=== PATIENT | male | born 1950 | race Asian ===

== ENCOUNTER 2017-02-02 15:35 | Inpatient (IN) | payer OTHER ==
[~2017-02-02] VITALS: Ht 154.9 cm; Wt 52.2 kg
[2017-02-02] MEDS ORDERED: ACETAMINOPHEN 325 MG TABLET PO PRN (17:30)
[2017-02-02] MEDS ORDERED: DOCUSATE SODIUM 283 MG/5 ML MINI-ENEMA PR PRN (17:30)
[2017-02-02 17:48] VITALS: BP 146/83
[2017-02-02 18:30] VITALS: BP 146/83
[2017-02-02] MEDS ORDERED: PNEUMOCOCCAL VACCINE POLYVALENT 0.5 ML VIAL [PPSV23] IM ONE (20:15)
[2017-02-02] MEDS ORDERED: DEXTROSE 50%-WATER 25 GM/50 ML SYRINGE IVP PRN (20:45)
[2017-02-02] MEDS: DOCUSATE SODIUM 100 MG CAPSULE PO SCH ×2 (21:00→21:29)
[2017-02-02] MEDS: SENNA 187 MG TABLET PO SCH ×2 (21:00→21:29)
[2017-02-02] MEDS: FINASTERIDE 5 MG TABLET PO SCH (21:29)
[2017-02-02] MEDS: ATORVASTATIN CALCIUM 40 MG TABLET PO SCH (21:29)
[2017-02-02] MEDS: LevETIRAcetam 500 MG TABLET PO SCH (21:29)
[2017-02-02] MEDS: HEPARIN SODIUM,PORCINE 5,000 UNITS/ML VIAL SQ SCH (21:30)
[2017-02-02] MEDS: FAMOTIDINE 20 MG TABLET PO SCH (21:31)
[2017-02-02 21:57] LABS: APPEARANCE,URINE CLEAR (CLEAR); GLUCOSE, URINE (UA) NEGATIVE (NEGATIVE); KETONES,URINE 40 mg/dL (NEGATIVE); LEUKOCYTE ESTERASE ,URINE NEGATIVE (NEGATIVE); OCCULT BLOOD,URINE NEGATIVE (NEGATIVE); PH,URINE 6.5 (5.0-8.0); PROTEIN,URINE NEGATIVE (NEGATIVE)
[2017-02-02 21:58] LABS: ADD UA MICROSCOPIC NO
[2017-02-02 22:07] LABS: GLUCOSE,POINT OF CARE 108 MG/DL (70-110)
[2017-02-02] MEDS: INSULIN ASPART 100 UNITS/ML SQ PRN (22:12)
[2017-02-02 23:32] LABS: GLUCOSE COMMENT 1 Received Meds; GLUCOSE,POINT OF CARE 189 MG/DL (70-110)
[2017-02-03 01:38] VITALS: BP 154/81
[2017-02-03 07:02] LABS: BASOPHILS % (AUTO) 0.1 % (0.0-2.0); EOSINOPHILS % (AUTO) 0.5 % (1.0-6.0); HEMATOCRIT 32.4 % (41-53); HEMOGLOBIN 10.8 g/dL (13.5-17.5); LYMPHOCYTES # (AUTO) 0.8 K/uL (1.0-4.8); LYMPHOCYTES % (AUTO) 9.8 % (22.0-44.0); MEAN CORPUSCULAR HEMOGLOBIN 29.8 pg (26.0-34.0); MEAN CORPUSCULAR HGB CONC 33.2 G/dL (31.0-37.0); MEAN CORPUSCULAR VOLUME 90 fL (80-100); MONOCYTES # (AUTO) 0.5 K/uL (0.1-1.0); MONOCYTES % (AUTO) 6.3 % (2.0-9.0); NEUTROPHILS # (AUTO) 6.8 K/uL (1.8-7.7); NEUTROPHILS % (AUTO) 83.3 % (40.0-70.0); PLATELET COUNT (AUTO) 311 K/uL (150-450); RED BLOOD CELL COUNT(AUTO) 3.61 MIL/uL (4.50-5.90); RED CELL DISTRIBUTION WIDTH 15.1 % (11.5-14.5); WHITE BLOOD COUNT (AUTO) 8.2 K/uL (4.5-11.0)
[2017-02-03 07:15] LABS: ALANINE AMINOTRANSFERASE 36 U/L (12-78); ALBUMIN 1.8 g/dL (3.4-5.0); ANION GAP 9 mmol/L (8-16); ASPARTATE AMINOTRANSFERASE 32 U/L (15-37); BILIRUBIN,TOTAL 0.3 mg/dL (0.1-1.0); CALCIUM, TOTAL 7.5 mg/dL (8.8-10.5); CARBON DIOXIDE 26 mmol/L (22-29); CHLORIDE 102 mmol/L (98-107); CREATININE 0.75 mg/dL (0.60-1.30); GLOMERULAR FILTR. RATE CALC > 60 mL/min (>60); POTASSIUM 3.6 mmol/L (3.5-5.1); SODIUM SERUM 137 mmol/L (136-145); TOTAL PROTEIN, SERUM 5.3 g/dL (6.4-8.2); UREA NITROGEN, BLOOD 7 mg/dL (7-18)
[2017-02-03 07:17] LABS: GLUCOSE,POINT OF CARE 114 MG/DL (70-110)
[2017-02-03 07:21] VITALS: BP 149/83
[2017-02-03] MEDS: MetFORMIN HCL 500 MG TABLET PO SCH (08:10)
[2017-02-03] MEDS: CYANOCOBALAMIN 500 MCG TABLET PO SCH (08:10)
[2017-02-03] MEDS: LevETIRAcetam 500 MG TABLET PO SCH ×2 (08:10→20:59)
[2017-02-03] MEDS: HEPARIN SODIUM,PORCINE 5,000 UNITS/ML VIAL SQ SCH ×2 (08:11→20:59)
[2017-02-03] MEDS: DOCUSATE SODIUM 100 MG CAPSULE PO SCH ×2 (08:11→20:59)
[2017-02-03] MEDS ORDERED: PIOGLITAZONE HCL 30 MG TABLET PO SCH (09:00)
[2017-02-03] MEDS ORDERED: LISINOPRIL 10 MG TABLET PO SCH (09:00)
[2017-02-03 13:02] LABS: GLUCOSE,POINT OF CARE 179 MG/DL (70-110)
[2017-02-03 16:00] VITALS: BP 127/70
[2017-02-03 17:53] LABS: GLUCOSE COMMENT 1 Received Meds; GLUCOSE,POINT OF CARE 223 MG/DL (70-110)
[2017-02-03] MEDS ORDERED: CYAN500 PO (18:09)
[2017-02-03] MEDS ORDERED: FINA5TAB41 PO (18:09)
[2017-02-03] MEDS ORDERED: LISI-661 PO (18:09)
[2017-02-03] MEDS ORDERED: ASPI-1182 PO (18:09)
[2017-02-03] MEDS ORDERED: ATOR40TA28 PO (18:09)
[2017-02-03] MEDS ORDERED: DEXT15DR21 OU (18:09)
[2017-02-03] MEDS ORDERED: METF500T7 PO (18:09)
[2017-02-03 20:30] VITALS: BP 151/85
[2017-02-03] MEDS: FINASTERIDE 5 MG TABLET PO SCH (20:58)
[2017-02-03] MEDS: ATORVASTATIN CALCIUM 40 MG TABLET PO SCH (20:58)
[2017-02-03] MEDS: LISINOPRIL 10 MG TABLET PO SCH (20:58)
[2017-02-03] MEDS: CALCIUM CIT/VITAMIN D3 200 MG-250 UNITS TABLET PO SCH (20:59)
[2017-02-03] MEDS: FAMOTIDINE 20 MG TABLET PO SCH (20:59)
[2017-02-03] MEDS: SENNA 187 MG TABLET PO SCH (20:59)
[2017-02-03] MEDS: INSULIN ASPART 100 UNITS/ML SQ PRN (21:14)
[2017-02-03 22:12] LABS: GLUCOSE COMMENT 1 Received Meds; GLUCOSE,POINT OF CARE 171 MG/DL (70-110)
[2017-02-04 00:30] VITALS: BP 149/78
[2017-02-04 06:08] LABS: GLUCOSE,POINT OF CARE 125 MG/DL (70-110)
[2017-02-04 07:10] VITALS: BP 139/78
[2017-02-04] MEDS: CALCIUM CIT/VITAMIN D3 200 MG-250 UNITS TABLET PO SCH ×2 (07:46→20:34)
[2017-02-04] MEDS: DOCUSATE SODIUM 100 MG CAPSULE PO SCH (07:46)
[2017-02-04] MEDS: MetFORMIN HCL 500 MG TABLET PO SCH (07:47)
[2017-02-04] MEDS: HEPARIN SODIUM,PORCINE 5,000 UNITS/ML VIAL SQ SCH ×2 (07:47→20:34)
[2017-02-04] MEDS: CYANOCOBALAMIN 500 MCG TABLET PO SCH (07:48)
[2017-02-04] MEDS: LISINOPRIL 10 MG TABLET PO SCH ×2 (07:48→20:34)
[2017-02-04] MEDS: LevETIRAcetam 500 MG TABLET PO SCH ×2 (07:48→20:34)
[2017-02-04] MEDS: DOCUSATE SODIUM 250 MG CAPSULE PO SCH (09:00)
[2017-02-04 13:12] LABS: GLUCOSE COMMENT 1 Repeated; GLUCOSE,POINT OF CARE 173 MG/DL (70-110)
[2017-02-04 15:09] VITALS: BP 143/88
[2017-02-04 18:08] LABS: GLUCOSE,POINT OF CARE 171 MG/DL (70-110)
[2017-02-04 20:30] VITALS: BP 156/84
[2017-02-04] MEDS: ATORVASTATIN CALCIUM 40 MG TABLET PO SCH (20:34)
[2017-02-04] MEDS: FAMOTIDINE 20 MG TABLET PO SCH (20:34)
[2017-02-04] MEDS: FINASTERIDE 5 MG TABLET PO SCH (20:35)
[2017-02-04] MEDS ORDERED: HYPROMELLOSE 0.5% 15 ML OPHTHALMIC SOLUTION OU PRN (22:00)
[2017-02-05] VITALS: BP 128/83
[2017-02-05 07:25] VITALS: BP 144/80
[2017-02-05] MEDS: CYANOCOBALAMIN 500 MCG TABLET PO SCH (08:13)
[2017-02-05] MEDS: DOCUSATE SODIUM 250 MG CAPSULE PO SCH (08:13)
[2017-02-05] MEDS: LevETIRAcetam 500 MG TABLET PO SCH ×2 (08:13→21:08)
[2017-02-05] MEDS: MetFORMIN HCL 500 MG TABLET PO SCH (08:13)
[2017-02-05] MEDS: LISINOPRIL 10 MG TABLET PO SCH ×2 (08:13→21:08)
[2017-02-05] MEDS: CALCIUM CIT/VITAMIN D3 200 MG-250 UNITS TABLET PO SCH ×2 (08:13→21:08)
[2017-02-05] MEDS: HEPARIN SODIUM,PORCINE 5,000 UNITS/ML VIAL SQ SCH (08:14)
[2017-02-05 13:18] LABS: GLUCOSE,POINT OF CARE 136 MG/DL (70-110)
[2017-02-05 15:27] VITALS: BP 132/74
[2017-02-05] MEDS: INSULIN ASPART 100 UNITS/ML SQ PRN (18:19)
[2017-02-05 20:12] LABS: GLUCOSE COMMENT 1 Received Meds; GLUCOSE,POINT OF CARE 170 MG/DL (70-110)
[2017-02-05 21:07] VITALS: BP 135/91
[2017-02-05] MEDS: FINASTERIDE 5 MG TABLET PO SCH (21:08)
[2017-02-05] MEDS: FAMOTIDINE 20 MG TABLET PO SCH (21:08)
[2017-02-05] MEDS: MELATONIN 3 MG TABLET PO SCH (21:08)
[2017-02-05] MEDS: ATORVASTATIN CALCIUM 40 MG TABLET PO SCH (21:08)
[2017-02-05 21:57] LABS: GLUCOSE,POINT OF CARE 123 MG/DL (70-110)
[2017-02-06 00:23] VITALS: BP 133/72
[2017-02-06 04:37] LABS: GLUCOSE,POINT OF CARE 131 MG/DL (70-110)
[2017-02-06 04:37] LABS: GLUCOSE,POINT OF CARE 132 MG/DL (70-110)
[2017-02-06 06:08] LABS: GLUCOSE,POINT OF CARE 131 MG/DL (70-110)
[2017-02-06 07:32] VITALS: BP 129/74
[2017-02-06] MEDS: CYANOCOBALAMIN 500 MCG TABLET PO SCH (08:01)
[2017-02-06] MEDS: DOCUSATE SODIUM 250 MG CAPSULE PO SCH (08:01)
[2017-02-06] MEDS: SitaGLIPtin PHOSPHATE 25 MG TABLET PO SCH (08:01)
[2017-02-06] MEDS: MetFORMIN HCL 500 MG TABLET PO SCH (08:01)
[2017-02-06] MEDS: LevETIRAcetam 500 MG TABLET PO SCH (08:01)
[2017-02-06] MEDS: LISINOPRIL 10 MG TABLET PO SCH ×2 (08:01→20:46)
[2017-02-06] MEDS: CALCIUM CIT/VITAMIN D3 200 MG-250 UNITS TABLET PO SCH ×2 (08:02→20:46)
[2017-02-06 16:25] VITALS: BP 138/72
[2017-02-06] MEDS: INSULIN ASPART 100 UNITS/ML SQ PRN (17:53)
[2017-02-06 17:58] LABS: GLUCOSE,POINT OF CARE 104 MG/DL (70-110)
[2017-02-06 17:58] LABS: GLUCOSE COMMENT 1 Received Meds; GLUCOSE,POINT OF CARE 184 MG/DL (70-110)
[2017-02-06 20:40] VITALS: BP 137/83
[2017-02-06] MEDS: FINASTERIDE 5 MG TABLET PO SCH (20:45)
[2017-02-06] MEDS: FAMOTIDINE 20 MG TABLET PO SCH (20:45)
[2017-02-06] MEDS: MELATONIN 3 MG TABLET PO SCH (20:46)
[2017-02-06] MEDS: ATORVASTATIN CALCIUM 40 MG TABLET PO SCH (20:46)
[2017-02-06 23:12] LABS: GLUCOSE,POINT OF CARE 114 MG/DL (70-110)
[2017-02-06 23:15] VITALS: BP 126/74
[2017-02-07 05:57] LABS: GLUCOSE,POINT OF CARE 123 MG/DL (70-110)
[2017-02-07 07:20] VITALS: BP 134/75
[2017-02-07] MEDS: MetFORMIN HCL 500 MG TABLET PO SCH (08:38)
[2017-02-07] MEDS: CYANOCOBALAMIN 500 MCG TABLET PO SCH ×2 (09:00→09:05)
[2017-02-07] MEDS: MULTIVITAMINS WITH MINERALS, THERAPEUTIC TABLET PO SCH ×2 (09:00→09:04)
[2017-02-07] MEDS: CALCIUM CIT/VITAMIN D3 200 MG-250 UNITS TABLET PO SCH ×2 (09:04→20:21)
[2017-02-07] MEDS: SitaGLIPtin PHOSPHATE 25 MG TABLET PO SCH (09:05)
[2017-02-07] MEDS: DOCUSATE SODIUM 250 MG CAPSULE PO SCH (09:05)
[2017-02-07] MEDS: LISINOPRIL 10 MG TABLET PO SCH ×2 (09:05→20:21)
[2017-02-07 12:22] LABS: GLUCOSE,POINT OF CARE 160 MG/DL (70-110)
[2017-02-07] MEDS: INSULIN ASPART 100 UNITS/ML SQ PRN ×3 (12:28→20:46)
[2017-02-07 16:10] VITALS: BP 111/76
[2017-02-07] MEDS: FINASTERIDE 5 MG TABLET PO SCH (20:21)
[2017-02-07] MEDS: FAMOTIDINE 20 MG TABLET PO SCH (20:21)
[2017-02-07] MEDS: ATORVASTATIN CALCIUM 40 MG TABLET PO SCH (20:21)
[2017-02-07 20:22] VITALS: BP 132/75
[2017-02-07] MEDS: ZOLPIDEM TARTRATE 5 MG TABLET PO PRN (20:47)
[2017-02-07 22:47] LABS: GLUCOSE COMMENT 1 Received Meds; GLUCOSE,POINT OF CARE 191 MG/DL (70-110)
[2017-02-07 22:47] LABS: GLUCOSE,POINT OF CARE 252 MG/DL (70-110)
[2017-02-08] VITALS: BP 122/73
[2017-02-08 05:42] LABS: GLUCOSE,POINT OF CARE 145 MG/DL (70-110)
[2017-02-08 07:56] VITALS: BP 112/71
[2017-02-08] MEDS: DOCUSATE SODIUM 250 MG CAPSULE PO SCH (07:57)
[2017-02-08] MEDS: MULTIVITAMINS WITH MINERALS, THERAPEUTIC TABLET PO SCH (07:57)
[2017-02-08] MEDS: MetFORMIN HCL 500 MG TABLET PO SCH (07:57)
[2017-02-08] MEDS: SitaGLIPtin PHOSPHATE 25 MG TABLET PO SCH (07:57)
[2017-02-08] MEDS: CALCIUM CIT/VITAMIN D3 200 MG-250 UNITS TABLET PO SCH ×2 (07:58→20:08)
[2017-02-08] MEDS: LISINOPRIL 10 MG TABLET PO SCH ×2 (07:58→20:09)
[2017-02-08] MEDS: CYANOCOBALAMIN 500 MCG TABLET PO SCH (07:58)
[2017-02-08] MEDS: INSULIN ASPART 100 UNITS/ML SQ PRN ×2 (18:43→20:17)
[2017-02-08 20:06] VITALS: BP 111/70
[2017-02-08] MEDS: ZOLPIDEM TARTRATE 5 MG TABLET PO PRN (20:08)
[2017-02-08] MEDS: FINASTERIDE 5 MG TABLET PO SCH (20:09)
[2017-02-08] MEDS: FAMOTIDINE 20 MG TABLET PO SCH (20:09)
[2017-02-08] MEDS: ATORVASTATIN CALCIUM 40 MG TABLET PO SCH (20:09)
[2017-02-08 22:31] LABS: GLUCOSE COMMENT 1 Received Meds; GLUCOSE,POINT OF CARE 186 MG/DL (70-110)
[2017-02-08 22:31] LABS: GLUCOSE COMMENT 1 Received Meds; GLUCOSE,POINT OF CARE 232 MG/DL (70-110)
[2017-02-08 22:31] LABS: GLUCOSE,POINT OF CARE 119 MG/DL (70-110)
[2017-02-08 23:45] VITALS: BP 121/70
[2017-02-09 06:28] LABS: GLUCOSE,POINT OF CARE 157 MG/DL (70-110)
[2017-02-09] MEDS: CALCIUM CIT/VITAMIN D3 200 MG-250 UNITS TABLET PO SCH ×2 (07:29→21:10)
[2017-02-09] MEDS: MULTIVITAMINS WITH MINERALS, THERAPEUTIC TABLET PO SCH (07:29)
[2017-02-09] MEDS: SitaGLIPtin PHOSPHATE 25 MG TABLET PO SCH (07:30)
[2017-02-09] MEDS: LISINOPRIL 10 MG TABLET PO SCH ×2 (07:30→21:00)
[2017-02-09] MEDS: MetFORMIN HCL 500 MG TABLET PO SCH (07:30)
[2017-02-09] MEDS: DOCUSATE SODIUM 250 MG CAPSULE PO SCH (07:30)
[2017-02-09] MEDS: INSULIN ASPART 100 UNITS/ML SQ PRN ×2 (07:49→19:25)
[2017-02-09 07:50] VITALS: BP 112/73
[2017-02-09 12:08] LABS: GLUCOSE,POINT OF CARE 208 MG/DL (70-110)
[2017-02-09 15:02] VITALS: BP 121/74
[2017-02-09] MEDS ORDERED: DOCU250C91 PO (16:37)
[2017-02-09] MEDS ORDERED: METF500T4 PO (16:37)
[2017-02-09] MEDS ORDERED: SITA25 PO (16:37)
[2017-02-09] MEDS ORDERED: FINA5TAB41 PO (16:37)
[2017-02-09] MEDS ORDERED: MV-M1TAB2 PO (16:37)
[2017-02-09] MEDS ORDERED: LISI-661 PO (16:37)
[2017-02-09] MEDS ORDERED: CALC-840 PO (16:37)
[2017-02-09] MEDS ORDERED: FAMO20 PO (16:37)
[2017-02-09 18:43] LABS: GLUCOSE,POINT OF CARE 185 MG/DL (70-110)
[2017-02-09 21:06] VITALS: BP 102/73
[2017-02-09] MEDS: ATORVASTATIN CALCIUM 40 MG TABLET PO SCH (21:10)
[2017-02-09] MEDS: FAMOTIDINE 20 MG TABLET PO SCH (21:11)
[2017-02-09] MEDS: FINASTERIDE 5 MG TABLET PO SCH (21:11)
[2017-02-09] MEDS: ZOLPIDEM TARTRATE 5 MG TABLET PO PRN (21:11)
[2017-02-09 23:37] VITALS: BP 123/61
[2017-02-10 05:42] LABS: GLUCOSE,POINT OF CARE 135 MG/DL (70-110)
[2017-02-10 05:57] LABS: GLUCOSE,POINT OF CARE 179 MG/DL (70-110)
[2017-02-10 07:35] VITALS: BP 136/86
[2017-02-10] MEDS: CALCIUM CIT/VITAMIN D3 200 MG-250 UNITS TABLET PO SCH ×2 (07:48→20:19)
[2017-02-10] MEDS: MetFORMIN HCL 500 MG TABLET PO SCH (07:48)
[2017-02-10] MEDS: DOCUSATE SODIUM 250 MG CAPSULE PO SCH (07:48)
[2017-02-10] MEDS: MULTIVITAMINS WITH MINERALS, THERAPEUTIC TABLET PO SCH (07:49)
[2017-02-10] MEDS: SitaGLIPtin PHOSPHATE 25 MG TABLET PO SCH (07:49)
[2017-02-10] MEDS: LISINOPRIL 10 MG TABLET PO SCH ×2 (07:49→20:22)
[2017-02-10] MEDS ORDERED: CYANOCOBALAMIN 500 MCG TABLET PO SCH (09:00)
[2017-02-10 12:23] LABS: GLUCOSE,POINT OF CARE 136 MG/DL (70-110)
[2017-02-10 15:30] VITALS: BP 120/74
[2017-02-10 17:43] LABS: GLUCOSE,POINT OF CARE 161 MG/DL (70-110)
[2017-02-10] MEDS: ATORVASTATIN CALCIUM 40 MG TABLET PO SCH (20:19)
[2017-02-10] MEDS: FAMOTIDINE 20 MG TABLET PO SCH (20:19)
[2017-02-10] MEDS: FINASTERIDE 5 MG TABLET PO SCH (20:20)
[2017-02-10] MEDS: ZOLPIDEM TARTRATE 5 MG TABLET PO PRN (20:23)
[2017-02-10 20:30] VITALS: BP 119/77
[2017-02-10 21:03] LABS: GLUCOSE,POINT OF CARE 231 MG/DL (70-110)
[2017-02-10] MEDS ORDERED: ZOLPIDEM TARTRATE 10 MG TABLET PO PRN (23:15)
[2017-02-10 23:43] VITALS: BP 135/81
[2017-02-11 06:12] LABS: GLUCOSE,POINT OF CARE 215 MG/DL (70-110)
[2017-02-11 07:48] VITALS: BP 117/73
[2017-02-11] MEDS: MetFORMIN HCL 500 MG TABLET PO SCH (07:58)
[2017-02-11] MEDS: SitaGLIPtin PHOSPHATE 25 MG TABLET PO SCH (07:58)
[2017-02-11] MEDS: MULTIVITAMINS WITH MINERALS, THERAPEUTIC TABLET PO SCH (07:59)
[2017-02-11] MEDS: DOCUSATE SODIUM 250 MG CAPSULE PO SCH (07:59)
[2017-02-11] MEDS: CALCIUM CIT/VITAMIN D3 200 MG-250 UNITS TABLET PO SCH (07:59)
[2017-02-11] MEDS: LISINOPRIL 10 MG TABLET PO SCH (07:59)
[2017-02-11] MEDS ORDERED: CYAN500 PO (09:31)
== END 2017-02-11 10:00 | disposition home health service (06) | DRG 56 ==
LOC: 2WR 17:10
PROVIDERS: ADMIT Physical Medicine & Rehabilitation; ATTEND Physical Medicine & Rehabilitation
DX: G81.94 Hemiplegia, unspecified affecting left nondominant side (principal); I62.01 Nontraumatic acute subdural hemorrhage; G93.5 Compression of brain; E11.9 Type 2 diabetes mellitus without complications; D64.9 Anemia, unspecified; I10 Essential (primary) hypertension; D32.0 Benign neoplasm of cerebral meninges; G93.89 Other specified disorders of brain; E53.8 Deficiency of other specified B group vitamins; E78.5 Hyperlipidemia, unspecified; K59.00 Constipation, unspecified; N40.0 Benign prostatic hyperplasia without lower urinary tract symptoms; G47.33 Obstructive sleep apnea (adult) (pediatric); K57.90 Diverticulosis of intestine, part unspecified, without perforation or abscess without bleeding; E83.51 Hypocalcemia; M65.30 Trigger finger, unspecified finger; R47.1 Dysarthria and anarthria; R26.9 Unspecified abnormalities of gait and mobility; G62.9 Polyneuropathy, unspecified; F43.21 Adjustment disorder with depressed mood; G47.00 Insomnia, unspecified; Z80.0 Family history of malignant neoplasm of digestive organs; Z86.011 Personal history of benign neoplasm of the brain; Z91.048 Other nonmedicinal substance allergy status
CPT/HCPCS: 70450; 82607; 82652; 82746; 82962; 83036; 87081; 92507; 92508; 92523; 93970; 97110; 97112; 97116; 97163; 97167; 97530; 97535; 99366; J1644

== ENCOUNTER 2017-02-25 17:07 | Inpatient (IN) | payer OTHER ==
[~2017-02-25] VITALS: Ht 154.9 cm; Wt 59.4 kg
[~2017-02-25 17:07] MED LIST: ATOR40TA28 PO; CALC-840 PO; CYAN500 PO; DOCU250C91 PO; FAMO20 PO; FINA5TAB41 PO; LISI-661 PO; METF500T4 PO; MV-M1TAB2 PO; SITA25 PO
[2017-02-25 17:27] LABS: BASOPHILS % (AUTO) 0.2 % (0.0-2.0); EOSINOPHILS % (AUTO) 0.5 % (1.0-6.0); HEMATOCRIT 30.2 % (41-53); HEMOGLOBIN 10.3 g/dL (13.5-17.5); LYMPHOCYTES # (AUTO) 1.9 K/uL (1.0-4.8); LYMPHOCYTES % (AUTO) 13.8 % (22.0-44.0); MEAN CORPUSCULAR HEMOGLOBIN 30.5 pg (26.0-34.0); MEAN CORPUSCULAR VOLUME 90 fL (80-100); MONOCYTES % (AUTO) 7.5 % (2.0-9.0); NEUTROPHILS # (AUTO) 10.9 K/uL (1.8-7.7); PLATELET COUNT (AUTO) 412 K/uL (150-450); RED BLOOD CELL COUNT(AUTO) 3.37 MIL/uL (4.50-5.90); RED CELL DISTRIBUTION WIDTH 15.8 % (11.5-14.5)
[2017-02-25 17:40] LABS: INR 0.9 (0.9-1.1); PROTHROMBIN TIME 9.6 SEC (9.4-11.6)
[2017-02-25 17:52] LABS: B-TYPE NATRIURETIC PEPTIDE 13 pg/mL (0-100)
[2017-02-25] MEDS ORDERED: SODIUM CHLORIDE 0.9% 1,000 ML IV ONE ×2 (18:00→18:15)
[2017-02-25] MEDS ORDERED: ACETAMINOPHEN 650 MG RECTAL SUPPOSITORY PR ONE (18:00)
[2017-02-25 18:05] LABS: LACTIC ACID 8.6 mmol/L (0.4-2.0)
[2017-02-25 18:23] LABS: ANION GAP 18 mmol/L (8-16); CALCIUM, TOTAL 8.6 mg/dL (8.8-10.5); CARBON DIOXIDE 17 mmol/L (22-29); CHLORIDE 94 mmol/L (98-107); CREATININE 1.19 mg/dL (0.60-1.30); GLOMERULAR FILTR. RATE CALC > 60 mL/min (>60); SODIUM SERUM 129 mmol/L (136-145); UREA NITROGEN, BLOOD 16 mg/dL (7-18)
[2017-02-25 18:28] LABS: ALANINE AMINOTRANSFERASE 59 U/L (12-78); ALBUMIN 2.6 g/dL (3.4-5.0); ASPARTATE AMINOTRANSFERASE 37 U/L (15-37); BILIRUBIN,TOTAL 0.3 mg/dL (0.1-1.0); CREATINE KINASE, TOTAL 41 U/L (39-308); TOTAL PROTEIN, SERUM 7.3 g/dL (6.4-8.2)
[2017-02-25 18:31] LABS: ADD UA MICROSCOPIC YES; APPEARANCE,URINE CLEAR (CLEAR); GLUCOSE, URINE (UA) 500 mg/dL (NEGATIVE); KETONES,URINE TRACE mg/dL (NEGATIVE); LEUKOCYTE ESTERASE ,URINE NEGATIVE (NEGATIVE); OCCULT BLOOD,URINE NEGATIVE (NEGATIVE); PROTEIN,URINE POS 1+ (NEGATIVE)
[2017-02-25 19:00] LABS: SQUAMOUS EPITHELIAL CELL,UR Few /LPF (None Seen)
[2017-02-25 19:01] LABS: RBC,URINE 0-2 /HPF (0-2); URINALYSIS COMMENT Few Sperm seen.; WBC,URINE 0-2 /HPF (0-5)
[2017-02-25] MEDS ORDERED: PIPERACILLIN/TAZO 3.375 GM/D5W 50 ML IV ONE (19:15)
[2017-02-25] MEDS ORDERED: VANCOMYCIN HCL 1 GM/D5% WATER 200 ML IV ONE (19:15)
[2017-02-25 19:22] LABS: REFLEX LACTIC ACID? YES YES
[2017-02-25 19:49] LABS: GLUCOSE,POINT OF CARE 252 MG/DL (70-110)
[2017-02-25 20:24] LABS: INFLUENZA TYPE B NEGATIVE FOR TYPE B (NEGATIVE)
[2017-02-25 20:57] VITALS: BP 126/76
[2017-02-25] MEDS ORDERED: ACETAMINOPHEN 325 MG TABLET PO PRN (21:00)
[2017-02-25] MEDS ORDERED: 0.9% SODIUM CHLORIDE 10 ML SYRINGE IVP PRN (21:00)
[2017-02-25] MEDS ORDERED: ONDANSETRON HCL 4 MG/2 ML VIAL IVP PRN (21:00)
[2017-02-25] MEDS ORDERED: INFLUENZA VIRUS VACCINE QVS 2017-18 (3YR+)/PF 60 MCG/0.5 ML SYRINGE IM ONE (22:00)
[2017-02-25] MEDS: SODIUM CHLORIDE 0.9% 1,000 ML IV SCH (23:16)
[2017-02-25] MEDS ORDERED: DEXTROSE 50%-WATER 25 GM/50 ML SYRINGE IVP PRN ×2 (23:30)
[2017-02-26] VITALS (7 sets, daily range): BP systolic 101–133; BP diastolic 63–75
[2017-02-26 06:30] LABS: BASOPHILS % (AUTO) 0.1 % (0.0-2.0); EOSINOPHILS % (AUTO) 0.4 % (1.0-6.0); HEMATOCRIT 27.4 % (41-53); HEMOGLOBIN 9.2 g/dL (13.5-17.5); LYMPHOCYTES # (AUTO) 1.1 K/uL (1.0-4.8); LYMPHOCYTES % (AUTO) 9.7 % (22.0-44.0); MEAN CORPUSCULAR HEMOGLOBIN 30.5 pg (26.0-34.0); MEAN CORPUSCULAR HGB CONC 33.6 G/dL (31.0-37.0); MEAN CORPUSCULAR VOLUME 91 fL (80-100); MONOCYTES # (AUTO) 0.9 K/uL (0.1-1.0); MONOCYTES % (AUTO) 7.6 % (2.0-9.0); NEUTROPHILS # (AUTO) 9.6 K/uL (1.8-7.7); NEUTROPHILS % (AUTO) 82.2 % (40.0-70.0); PLATELET COUNT (AUTO) 367 K/uL (150-450); RED BLOOD CELL COUNT(AUTO) 3.02 MIL/uL (4.50-5.90); RED CELL DISTRIBUTION WIDTH 15.7 % (11.5-14.5); WHITE BLOOD COUNT (AUTO) 11.6 K/uL (4.5-11.0)
[2017-02-26 07:02] LABS: ALANINE AMINOTRANSFERASE 47 U/L (12-78); ALBUMIN 2.1 g/dL (3.4-5.0); ANION GAP 8 mmol/L (8-16); ASPARTATE AMINOTRANSFERASE 27 U/L (15-37); BILIRUBIN,TOTAL 0.4 mg/dL (0.1-1.0); CALCIUM, TOTAL 7.6 mg/dL (8.8-10.5); CARBON DIOXIDE 25 mmol/L (22-29); CHLORIDE 103 mmol/L (98-107); CREATININE 0.81 mg/dL (0.60-1.30); GLOMERULAR FILTR. RATE CALC > 60 mL/min (>60); POTASSIUM 3.8 mmol/L (3.5-5.1); SODIUM SERUM 136 mmol/L (136-145); TOTAL PROTEIN, SERUM 5.9 g/dL (6.4-8.2); UREA NITROGEN, BLOOD 8 mg/dL (7-18)
[2017-02-26] MEDS: SODIUM CHLORIDE 0.9% 1,000 ML IV SCH ×2 (08:00→18:40)
[2017-02-26] MEDS ORDERED: GADOBUTROL 1 MMOL/ML 10 ML VIAL IVP ONE (08:24)
[2017-02-26 08:38] LABS: BAND NEUTROPHILS % (MANUAL) 1 % (1-5); BASOPHILS % (MANUAL) 0 % (0-2); EOSINOPHILS % (MANUAL) 0 % (1-6); LYMPHOCYTES % (MANUAL) 11 % (22-44); RBC MORPHOLOGY COMMENT NORMAL RBC MORPH
[2017-02-26 08:40] LABS: TOTAL CELLS COUNTED 100
[2017-02-26] MEDS ORDERED: CYANOCOBALAMIN 500 MCG TABLET PO SCH (09:00)
[2017-02-26] MEDS: LISINOPRIL 10 MG TABLET PO SCH ×2 (10:34→21:49)
[2017-02-26] MEDS: INSULIN ASPART 100 UNITS/ML SQ PRN (18:40)
[2017-02-26 19:57] LABS: GLUCOSE COMMENT 1 Received Meds; GLUCOSE,POINT OF CARE 162 MG/DL (70-110)
[2017-02-26] MEDS: LevETIRAcetam 500 MG TABLET PO SCH (21:48)
[2017-02-26] MEDS: FAMOTIDINE 20 MG TABLET PO SCH (21:49)
[2017-02-26] MEDS: FINASTERIDE 5 MG TABLET PO SCH (21:49)
[2017-02-26] MEDS: ATORVASTATIN CALCIUM 40 MG TABLET PO SCH ×2 (21:49→21:52)
[2017-02-27] MEDS: SODIUM CHLORIDE 0.9% 1,000 ML IV SCH ×3 (00:27→20:55)
[2017-02-27 05:02] VITALS: BP 136/78
[2017-02-27] MEDS: INSULIN ASPART 100 UNITS/ML SQ PRN ×4 (06:40→21:08)
[2017-02-27] MEDS ORDERED: VANCOMYCIN HCL 1 GM/D5% WATER 200 ML IV SCH (08:00)
[2017-02-27] MEDS: LevETIRAcetam 500 MG TABLET PO SCH ×2 (08:07→21:04)
[2017-02-27 08:12] VITALS: BP 126/72
[2017-02-27] MEDS: LISINOPRIL 10 MG TABLET PO SCH ×2 (08:14→21:04)
[2017-02-27] MEDS: PIPERACILLIN/TAZO 3.375 GM/D5W 50 ML IV SCH ×3 (10:15→22:00)
[2017-02-27 10:55] LABS: ANION GAP 9 mmol/L (8-16); CALCIUM, TOTAL 7.9 mg/dL (8.8-10.5); CARBON DIOXIDE 25 mmol/L (22-29); CHLORIDE 101 mmol/L (98-107); CREATININE 0.78 mg/dL (0.60-1.30); GLOMERULAR FILTR. RATE CALC > 60 mL/min (>60); POTASSIUM 3.4 mmol/L (3.5-5.1); SODIUM SERUM 135 mmol/L (136-145); UREA NITROGEN, BLOOD 3 mg/dL (7-18)
[2017-02-27 11:13] VITALS: BP 121/69
[2017-02-27] MEDS ORDERED: POTASSIUM CHLORIDE 20 MEQ ER TABLET PO ONE (11:45)
[2017-02-27 15:32] VITALS: BP 125/70
[2017-02-27 20:13] LABS: GLUCOSE,POINT OF CARE 191 MG/DL (70-110)
[2017-02-27 20:13] LABS: GLUCOSE COMMENT 1 Received Meds; GLUCOSE,POINT OF CARE 144 MG/DL (70-110)
[2017-02-27 20:14] LABS: GLUCOSE,POINT OF CARE 218 MG/DL (70-110)
[2017-02-27 20:14] LABS: GLUCOSE,POINT OF CARE 108 MG/DL (70-110)
[2017-02-27 20:18] LABS: GLUCOSE COMMENT 1 Received Meds; GLUCOSE,POINT OF CARE 182 MG/DL (70-110)
[2017-02-27 20:18] LABS: GLUCOSE,POINT OF CARE 162 MG/DL (70-110)
[2017-02-27 20:31] VITALS: BP 149/80
[2017-02-27] MEDS: FAMOTIDINE 20 MG TABLET PO SCH (21:04)
[2017-02-27] MEDS: ATORVASTATIN CALCIUM 40 MG TABLET PO SCH (21:04)
[2017-02-27] MEDS: FINASTERIDE 5 MG TABLET PO SCH (21:04)
[2017-02-28 00:22] VITALS: BP 125/77
[2017-02-28 04:01] VITALS: BP 132/70
[2017-02-28] MEDS: INSULIN ASPART 100 UNITS/ML SQ PRN ×2 (06:33→12:50)
[2017-02-28 07:16] VITALS: BP 135/76
[2017-02-28 07:50] LABS: BASOPHILS # (AUTO) 0.06 K/uL (0.00-0.20); BASOPHILS % (AUTO) 0.6 % (0.0-2.0); EOSINOPHILS # (AUTO) 0.14 K/uL (0.00-0.70); EOSINOPHILS % (AUTO) 1.45 % (1.0-6.0); HEMATOCRIT 30.3 % (41-53); HEMOGLOBIN 10.4 g/dL (13.5-17.5); LYMPHOCYTES # (AUTO) 1.5 K/uL (1.0-4.8); LYMPHOCYTES % (AUTO) 14.7 % (22.0-44.0); MEAN CORPUSCULAR HEMOGLOBIN 30.5 pg (26.0-34.0); MEAN CORPUSCULAR HGB CONC 34.5 G/dL (31.0-37.0); MEAN CORPUSCULAR VOLUME 89 fL (80-100); MONOCYTES # (AUTO) 0.7 K/uL (0.1-1.0); MONOCYTES % (AUTO) 6.8 % (2.0-9.0); NEUTROPHILS # (AUTO) 7.5 K/uL (1.8-7.7); NEUTROPHILS % (AUTO) 76.4 % (40.0-70.0); PLATELET COUNT (AUTO) 425 K/uL (150-450); RED BLOOD CELL COUNT(AUTO) 3.42 MIL/uL (4.50-5.90); RED CELL DISTRIBUTION WIDTH 15.7 % (11.5-14.5); WHITE BLOOD COUNT (AUTO) 9.8 K/uL (4.5-11.0)
[2017-02-28 08:01] LABS: ANION GAP 6 mmol/L (8-16); CALCIUM, TOTAL 8.1 mg/dL (8.8-10.5); CARBON DIOXIDE 26 mmol/L (22-29); CHLORIDE 101 mmol/L (98-107); CREATININE 0.73 mg/dL (0.60-1.30); GLOMERULAR FILTR. RATE CALC > 60 mL/min (>60); POTASSIUM 3.8 mmol/L (3.5-5.1); SODIUM SERUM 133 mmol/L (136-145); UREA NITROGEN, BLOOD 3 mg/dL (7-18)
[2017-02-28] MEDS: LevETIRAcetam 500 MG TABLET PO SCH (08:17)
[2017-02-28] MEDS: LISINOPRIL 10 MG TABLET PO SCH (08:17)
[2017-02-28] MEDS: SODIUM CHLORIDE 0.9% 1,000 ML IV SCH (10:00)
[2017-02-28 11:07] VITALS: BP 135/84
[2017-02-28 14:53] VITALS: BP 130/79
[2017-02-28 15:03] LABS: GLUCOSE COMMENT 1 Received Meds; GLUCOSE,POINT OF CARE 152 MG/DL (70-110)
[2017-02-28 15:03] LABS: GLUCOSE COMMENT 1 Received Meds; GLUCOSE,POINT OF CARE 143 MG/DL (70-110)
[2017-02-28 15:03] LABS: GLUCOSE COMMENT 1 Received Meds; GLUCOSE,POINT OF CARE 171 MG/DL (70-110)
[2017-02-28] MEDS ORDERED: LEVE500T53 PO (16:14)
== END 2017-02-28 17:30 | disposition home or self-care (01) | DRG 872 ==
LOC: EMS 17:09 → 5S 19:56
PROVIDERS: ADMIT Internal Medicine Geriatric Medicine; ATTEND Internal Medicine Geriatric Medicine
DX: A41.9 Sepsis, unspecified organism (principal); E11.9 Type 2 diabetes mellitus without complications; I10 Essential (primary) hypertension; E78.5 Hyperlipidemia, unspecified; N40.0 Benign prostatic hyperplasia without lower urinary tract symptoms; R29.810 Facial weakness; Z79.84 Long term (current) use of oral hypoglycemic drugs; Z79.899 Other long term (current) drug therapy; Z91.011 Allergy to milk products; Z86.011 Personal history of benign neoplasm of the brain; Z82.49 Family history of ischemic heart disease and other diseases of the circulatory system; Z83.3 Family history of diabetes mellitus; Z84.89 Family history of other specified conditions; Z28.21 Immunization not carried out because of patient refusal
CPT/HCPCS: 70496; 70544; 70553; 82962; 83605; 84145; 85007; 87040; 87804; 92610; 93005; 95816; 96361; 96365; 96367; 97162; 97165; 99291; A9585; J2543; J3370; J7030